=== PATIENT | male | born 1990 | race Two or more races ===

== ENCOUNTER 2024-06-09 19:21 | Emergency (ER) | payer SELFPAY ==
[~2024-06-09] VITALS: Ht 172.7 cm; Wt 91.7 kg
[2024-06-09 20:44] LABS: COVID19 ANTIGEN SOFIA FIA NEGATIVE (NEGATIVE); Rapid Influenza A Negative (Negative); Rapid Influenza B Negative (Negative)
[2024-06-09] MEDS: methylPREDNISolone SOD SUCC 125 MG/2 ML VL IV ONE (21:15)
[2024-06-09] MEDS: cefTRIAXone 1GM/50ML D5W 50 ML IV ONE (21:15)
--- NOTE | 2024-06-09 21:36 | ED.PDOC ---
SOB-HPI HPI Comments PATIENT COMES WITH C/C OF FLU LIKE SYMPTOMS FOR 6 DAYS. PATIENT REPORTS THROAT SWELLING, FEVER X3 DAYS, COUGH WITH YELLOW PHLEGM, CONGESTION AND RIGHT EAR PAIN. PATIENT REPORTS HE HAS RECENTLY BEEN AROUND SOMEONE WHO CAME TO THE ER FOR SAME SYMPTOMS AND WAS SENT HOME WITH MEDICATIONS BUT UNSURE WHAT SHE WAS DIAGNOSED WITH. Chief Complaint: Flu like Time Seen by MD: 19:26 Reviewed notes: Nurses Notes, Medications, Allergies Information Source: Patient Mode of Arrival: Ambulatory Past Medical History PAST MEDICAL HISTORY: Denies Surgical History: Denies all surgeries Family History Family History: Unknown Social History Smoker: Non-Smoker Alcohol: Denies ETOH Use Drugs: Denies Drug Use Constitutional: denies: chills, diaphoresis, fatigue, fever, malaise, sweats, weakness, others EENTM: reports: throat pain, throat swelling; denies: blurred vision, double v ision, ear bleeding, ear discharge, ear drainage, ear pain, ear ringing, eye pain, eye redness, hearing loss, mouth pain, mouth swelling, nasal discharge, nose bleeding, nose congestion, nose pain, photophobia, tearing, voice changes, others Respiratory: denies: cough, hemoptysis, orthopnea, SOB at rest, shortness of breath, SOB with excertion, stridor, wheezing, others Cardiovascular: denies: chest pain, dizzy spells, diaphoresis, Dyspnea on exertion, edema, irregular heart beat, left arm pain, lightheadedness, palpitations, PND, syncope, others Gastrointestinal: denies: abdomen distended, abdominal pain, blood streaked bowels, constipated, diarrhea, dysphagia, difficulty swallowing, hematemesis, melena, nausea, poor appetite, poor fluid intake, rectal bleeding, rectal pain, vomiting, others Genitourinary: denies: burning, dysuria, flank pain, frequency, hematuria, incontinence, penile discharge, penile sore, pain, testicle pain, testicle swelling, urgency, others Neurological: denies: dizziness, fainting, headache, left sided numbness, left sided weakness, numbness, paresthesia, pre-existing deficit, right sided numbness, right sided weakness, seizure, speech problems, tingling, tremors, weakness, others Musculoskeletal: denies: back pain, gout, joint pain, joint swelling, muscle pain, muscle stiffness, neck pain, others Integumetry: denies: bruises, change in color, change in hair/nails, dryness, laceration, lesions, lumps, rash, wounds, others Allergic/Immunocompromised: denies: Difficulty Healing, Frequent Infections, Hives, Itching, others Hematologic/Lymphatic: denies: anemia, blood clots, easy bleeding, easy bruising, swollen glands, others Endocrine: denies: excessive hunger, excessive sweating, excessive thirst, excessive urination, flushing, intolerance to cold, intolerance to heat, une xplained weight gain, unexplained weight loss, others Psychiatric: denies: anxiety, bipolar disorder, depression, hopeless, panic disorder, schizophrenia, sleepless, suicidal, others Physical Exam General Appearance: No Apparent Distress, Normal HEENT: Pharyngeal Erythema, TMs Normal, Other (SEVERELY ENLARGED RIGHT PALATE AND PALATINE TONSIL) Neck: Full Range of Motion, Non-Tender, Normal, Normal Inspection Respiratory: Chest Non-Tender, Lungs Clear, No Accessory Muscle Use, No Respiratory Distress, Normal Breath Sounds Cardiovascular: No Edema, No JVD, No Murmur, No Gallop, Normal Peripheral Pulses, Regular Rate/Rhythm Breast Exam: Deferred Gastrointestinal: No Organomegaly, Non Tender, No Pulsatile Mass, Normal Bowel Sounds, Soft Genitalia: Deferred Pelvic: Deferred Rectal: Deferred Extremities: No calf tenderness, Normal capillary refill, Normal inspection, Normal range of motion, Non-tender, No pedal edema Musculoskeletal : Apperance: Normal Neurologic: Alert, immersion metal cleaner II-XII nml as Tested, No Motor Deficits, Normal Affect, Normal Mood, No Sensory Deficits Cerebellar Function: Normal Reflexes: Normal Skin: Dry, Normal Color, Warm Lymphatic: No Adenopathy Was a procedure done? Was a procedure done?: No Differential Dx Differential Diagnosis: Otitis Media, Peritonsillar Abscess, Peritonsillar Cellulitis, Pharyngitis X-Ray, Labs, Meds, VS Vital Signs Date Time Temp Pulse Resp B/P (MAP) Pulse Ox O2 Delivery O2 Flow Rate FiO2 06/10/24 00:10 98.8 86 18 143/95 (111) 96 98.8 06/09/24 23:46 97.7 96 18 155/93 (113) 98 97.7 06/09/24 19:49 99.6 104 20 156/109 (125) 97 99.6 5/5/25 19:49 99.6 104 20 156/109 (125) 5 99.6 06/09/24 19:49 Room Air Lab Test 06/09/24 19:47 Range/Units Influenza Type A Antigen Negative Negative Influenza Type B Antigen Negative Negative SARS-CoV-2 Antigen (Rapid) Negative NEGATIVE X-Ray, Labs, Meds, VS Comment CT SOFT TISSUE NECK IMPRESSION: Right palatine tonsil is considerably enlarged and hypodense in appearance presumably representing phlegmon/abscess. Severe narrowing of oropharyngeal airway. Bilateral lymphadenopathy, presumably reactive. INFLUENZA AND COVID SWABS NEGATIVE MEDS: SOLU-MEDROL 125 MG IV PUSH ROCEPHIN 1 G IV PIGGYBACK PLAN: TRANSFER FOR HIGHER LEVEL OF CARE FOR ENT DRAINAGE OF PALATINE TONSILLAR ABSCESS SEVERE NARROWING OF THE OROPHARYNGEAL. PATIENT IS STABLE. PATIENT AUTOMATICALLY ACCEPTED TO [facility] PATIENT TO BE TRANSFERRED BLS. Time of 1ST Reevaluation: 21:36 Reevaluation 1ST: Unchanged Time of 2ND Reevaluation: 22:44 Reevaluation 2ND: Unchanged Patient Education/Counseling: Diagnosis, Treatment, Prognosis, Need For Follow Up Family Education/Counseling: No Family Present Departure 1 Departure Time of Disposition: 21:35 Impression: Primary Impression: Tonsillar abscess Additional Impression: Acute airway obstruction Disposition: 04 INTERMEDIATE CARE FACILITY Condition: Stable Discharged With: Self Critical Care Note Critical Care Time?: No Stability Stability form required: No Heart Score Heart Score: Heart Score Response (Comments) Value History N/A 0 EKG N/A 0 Age <45 0 Risk Factors N/A 0 Troponin N/A 0 Total 0 GABRIEL WALKER June 09, 2024 21:36
--- NOTE | 2024-06-09 22:12 | DVH ---
EXAM: CT NECK WITHOUT CONTRAST INDICATION: R/O RIGHT SIDE PERITONSILLAR ABSCESS Exam Date: 06/09/2024 09:39 PM COMPARISON: None TECHNIQUE: CT of the neck with intravenous contrast. RADIATION DOSE: CTDIvol: 18.43 mGy, DLP: 539.82 mGy*cm CONTRAST: Type of contrast: Contrast injected: ml Contrast ingested: ml FINDINGS: The right palatine tonsil is considerably enlarged and hypodense in appearance presumably representi ng phlegmon/abscess. There is severe narrowing of the oropharyngeal airway. Prominent adenoids also noted. There are multiple enlarged lymph nodes in the neck bilaterally presum ably reactive. Parotid, submandibular and thyroid glands are unremarkable. IMPRESSION: Right palatine tonsil is considerably enlarged and hypodense in appearance presumably representing p hlegmon/abscess. Severe narrowing of oropharyngeal airway. Bilateral lymphadenopathy, presumably reactive.
[2024-06-09] MEDS: ONDANSETRON HCL 4 MG/2 ML VIAL IV ONE (22:56)
[2024-06-10 00:10] VITALS: BP 143/95; PULSE 86; RESP 18; TEMP 98.8; O2SAT 96
== END 2024-06-09 22:32 | disposition short-term general hospital (02) ==
LOC: ER 19:21
DX: J36 Peritonsillar abscess (principal); J98.8 Other specified respiratory disorders; R50.9 Fever, unspecified; Z20.822 Contact with and (suspected) exposure to COVID-19
CPT/HCPCS: 36415; 70490; 87426; 87804; 99285; J0696; J2405; J2919